=== PATIENT | female | born 1975 | race Caucasian/White ===

== ENCOUNTER 2018-12-25 16:29 | Emergency (ER) | payer BC ==
[2018-12-25 19:00] VITALS: BP 142/51
--- NOTE | 2018-12-25 19:11 | UC ---
UC General HPI - HPI Summary HPI Summary: pt c/o worsening cough and chest congestion for over a week. she is now feeling much worse and run down. hx of "asthmatic bronchitis" - History of Current Complaint Chief Complaint: UCGeneralIllness Stated Complaint: COUGH, CHEST CONGESTION Time Seen by Provider: 12/25/18 19:05 Hx Obtained From: Patient Hx Last Menstrual Period: 12/25/18 Onset/Duration: Gradual Onset Timing: Constant Pain Intensity: 0 Associated Signs & Symptoms: Negative: Fever - Allergy/Home Medications Allergies/Adverse Reactions: Allergies Allergy/AdvReac Type Severity Reaction Status Date / Time azithromycin Allergy Rash Verified 12/25/18 19:01 environmental Allergy Eyes Uncoded 06/19/16 07:16 Itchy/Swollen/Red/Watery Home Medications: Home Medications Dm/PE/Acetaminophen/Chlorphenr [Pricila-Rowe Plus Cld-Cough Cp] 1 each PO DAILY 12/25/18 [History Confirmed 12/25/18] PMH/Surg Hx/FS Hx/Imm Hx - Additional Past Medical History Additional PMH: asthmatic bronchitis - Surgical History Surgical History: Yes Surgery Procedure, Year, and Place: Umbilical HERNIA REPAIR - Family History Known Family History: Positive: None, Unknown, Hypertension - both parents, Diabetes - son with DM I - Social History Lives: With Family Alcohol Use: Occasionally Substance Use Type: None Smoking Status (MU): Never Smoked Tobacco - Immunization History Most Recent Influenza Vaccination: 20T IN SEASON Review of Systems All Other Systems Reviewed And Are Negative: Yes Constitutional: Positive: Chills Skin: Positive: Negative Eyes: Positive: Negative ENT: Positive: Negative Respiratory: Positive: Shortness Of Breath, Cough Cardiovascular: Positive: Negative Gastrointestinal: Positive: Negative Genitourinary: Positive: Negative Motor: Positive: Negative Neurovascular: Positive: Negative Musculoskeletal: Positive: Negative Neurological: Positive: Negative Psychological: Positive: Negative Physical Exam Triage Information Reviewed: Yes Appearance: Well-Appearing Vital Signs: Initial Vital Signs Temp 98.3 F 12/25/18 18:58 Pulse 84 12/25/18 18:58 Resp 16 12/25/18 18:58 BP 142/51 12/25/18 18:58 Pulse Ox 100 12/25/18 18:58 Vital Signs Reviewed: Yes Eyes: Positive: Conjunctiva Clear ENT: Positive: Pharynx normal, TMs normal. Negative: Nasal congestion, Nasal drainage Neck: Positive: Supple, Nontender, No Lymphadenopathy Respiratory: Positive: No respiratory distress, Decreased breath sounds, Other: - Bronchospatic cough Cardiovascular: Positive: RRR, No Murmur Abdomen Description: Positive: Nontender, No Organomegaly, Soft Bowel Sounds: Positive: Present Musculoskeletal: Positive: ROM Intact Neurological: Positive: Alert Psychological: Positive: Age Appropriate Behavior Skin Exam: Normal Course/Dx - Course Course Of Treatment: given duration and worsening, will tx for a presumptive bacterial infection. - Differential Dx - Multi-Symptom Differential Diagnoses: Other - bronchitis, asthma, pneumonia - Diagnoses Provider Diagnosis: Asthmatic bronchitis Discharge - Sign-Out/Discharge Documenting (check all that apply): Patient Departure All imaging exams completed and their final reports reviewed: No Studies - Discharge Plan Condition: Stable Disposition: HOME Prescriptions: Albuterol HFA INHALER* [Ventolin HFA Inhaler*] 2 puff INH Q6H #1 mdi DOXYcycline CAP(*) [DOXYcycline 100MG CAP(*)] 100 mg PO BID 7 Days #14 cap predniSONE [Prednisone 20 MG TAB] 40 mg PO DAILY 5 Days #10 tablet Patient Education Materials: Bronchospasm (ED), Acute Cough (ED) Referrals: Mirta Mccabe MD [Primary Care Provider] - 7 Days - Billing Disposition and Condition Condition: STABLE Disposition: Home
== END 2018-12-25 19:16 | disposition home or self-care (01) ==
LOC: UCCORT 16:29
DX: J45.909 Unspecified asthma, uncomplicated (principal); Z88.1 Allergy status to other antibiotic agents; Z91.09 Other allergy status, other than to drugs and biological substances
CPT/HCPCS: 99212; G0463